=== PATIENT | female | born 1970 | race Caucasian/White ===

== ENCOUNTER 2020-01-19 11:37 | Outpatient (CLI) | payer MEDICAID ==
--- NOTE | 2020-01-19 14:31 | XRay Report ---
LEFT KNEE 3 VIEWS INDICATION / CLINICAL INFORMATION: M25.562 PAIN IN LEFT KNEE COMPARISON: None available. FINDINGS: BONES / JOINT(S): No acute fracture or subluxation. There is degenerative change involving all 3 comp artments most prominent in the lateral compartment. SOFT TISSUES: No significant abnormality. ADDITIONAL FINDINGS: None. Signer Name: Jesus Yousif MD Signed: 01/19/2020 2:26 PM Workstation Name: [id number]
--- NOTE | 2020-01-19 14:38 | XRay Report ---
RIGHT FOOT 3 VIEW(S) INDICATION / CLINICAL INFORMATION: M25.571 PAIN IN RIGHT ANKLE AND JOINTS OF RIGHT FOOT COMPARISON: None available. FINDINGS: BONES / JOINT(S): No acute fracture or subluxation. Plate and screw fixation is noted of the first th rough fourth TMT joints. The proximal aspect of the plate at the third TMT joint appears to be fractu red. Additionally the distal screw at the medial aspect of the second metatarsal is partially backed out. Screw fixation is noted prior trauma of the proximal fifth metatarsal and lateral cuneiform. SOFT TISSUES: Moderate soft tissue swelling is noted over the dorsum and medial aspects of the foot. ADDITIONAL FINDINGS: None. Signer Name: Marshal Aleman MD Signed: 01/19/2020 2:34 PM Workstation Name: [id number]
== END 2020-01-19 11:38 | disposition home or self-care (01) ==
LOC: XRAY 11:37
PROVIDERS: ATTEND Orthopaedic Surgery
DX: M17.12 Unilateral primary osteoarthritis, left knee (principal); M79.89 Other specified soft tissue disorders; M25.562 Pain in left knee; M25.571 Pain in right ankle and joints of right foot

== ENCOUNTER 2020-08-29 13:33 | Outpatient (CLI) | payer MEDICAID ==
[2020-08-29 14:03] LABS: Hematocrit 37.1 % (30.3-42.9); Hemoglobin 12.1 gm/dl (10.1-14.3); Mean Corpuscular HGB Conc 33 % (30-34); Mean Corpuscular Volume 94 fl (79-97); Platelet Count 199 K/mm3 (140-440); Red Blood Count 3.96 M/mm3 (3.65-5.03); Red Cell Distribution Width 16.2 % (13.2-15.2)
[2020-08-29 14:25] LABS: % Iron Saturation 16.61 %; Alanine Aminotransferase 36 units/L (7-56); Albumin 3.6 g/dL (3.9-5); BUN/Creatinine Ratio 21; Blood Urea Nitrogen 17 mg/dL (7-17); Calcium 8.9 mg/dL (8.4-10.2); HDL Cholesterol 70 mg/dL (40-59); Hemolysis Index 5; Iron 50 ug/dL (37-170); LDL Cholesterol,Direct 86 mg/dL (50-130); Total Iron Binding Capacity 301 mcg/dL (250-450)
[2020-08-29 14:44] LABS: Anisocytosis 1+; Ovalocytes Few; Platelet Estimate Consistent w Auto; Poikilocytosis 1+; Total Cells Counted 100
== END 2020-08-29 13:34 | disposition home or self-care (01) ==
LOC: LAB 13:33
PROVIDERS: ATTEND Surgery
DX: E66.01 Morbid (severe) obesity due to excess calories (principal); E11.9 Type 2 diabetes mellitus without complications; K30 Functional dyspepsia
CPT/HCPCS: 36415; 80053; 80061; 82306; 82607; 82728; 83036; 83550; 84425; 84443; 85007; 85025

== ENCOUNTER 2020-09-27 12:44 | Outpatient (CLI) | payer MEDICAID ==
--- NOTE | 2020-09-27 14:27 | XRay Report ---
BILATERAL FOOT 3 VIEW(S) INDICATION / CLINICAL INFORMATION: BILATERAL FOOT PAIN COMPARISON: Prior radiographs of the right foot 01/19/2020. FINDINGS: Right: BONES / JOINT(S): No acute fracture or subluxation. No significant arthritis. Accessory os peroneum SOFT TISSUES: No significant abnormality. Left: BONES / JOINT(S): No acute fracture or subluxation. Remote trauma noted throughout the midfoot and ba ses of the metatarsals with plate and screw fixation. Arthrodesis screws noted of the fifth TMT and c uboid. Previously noted fracture in the plate at the third TMT is similar. SOFT TISSUES: No significant abnormality. ADDITIONAL FINDINGS: None. Signer Name: Marshal Aleman MD Signed: 09/27/2020 2:22 PM Workstation Name: [id number]
== END 2020-09-27 12:45 | disposition home or self-care (01) ==
LOC: XRAY 12:44
PROVIDERS: ATTEND Orthopaedic Surgery
DX: S99.822A Other specified injuries of left foot, initial encounter (principal); I10 Essential (primary) hypertension

== ENCOUNTER 2020-11-10 06:55 | Day surgery (SDC) | payer MEDICAID ==
[~2020-11-10 06:55] MED LIST: MIDAZOLAM 2 MG/2 ML INJ IV NR; NEOMY 40 MG/POLYMYXIN B 200,000 UNITS/ML (GU) AMPULE IR ONE; SCOPOLAMINE TRANSDERMAL PATCH 72 HR TD NR; SODIUM CHLORIDE 0.9% 1000 ML 1,000 ML IV SCH; SODIUM CHLORIDE 0.9% IRR 1,500 ML BOTTLE IR ONE; ceFAZolin/Water 2 GM/20 ML 2 GM/20 ML SYRINGE IV NR
[2020-11-10] MEDS ORDERED: NEOMY 40 MG/POLYMYXIN B 200,000 UNITS/ML (GU) AMPULE IR ONE ×2 (07:08→08:48)
[2020-11-10] MEDS ORDERED: HYDROmorphone 1 MG/1 ML INJ ONE (07:25)
[2020-11-10] MEDS ORDERED: ONDANSETRON 4 MG/2 ML INJ ONE ×2 (07:25→10:34)
[2020-11-10] MEDS ORDERED: dexAMETHasone 20 MG/5 ML VIAL ONE ×2 (07:25→10:33)
[2020-11-10] MEDS ORDERED: fentaNYL 100 MCG/2 ML INJ ONE (07:25)
[2020-11-10] MEDS ORDERED: propofoL 200 MG/20 ML VIAL IV ONE ×4 (07:26→11:14)
[2020-11-10] MEDS ORDERED: ePHEDrine SULFATE 50 MG/1 ML INJ ONE ×2 (07:26→08:36)
[2020-11-10] MEDS ORDERED: HYDROcodone/ACETAMINOPHEN 5-325 MG TAB PO PRN (07:36)
[2020-11-10] MEDS ORDERED: ONDANSETRON 4 MG/2 ML INJ IV PRN (07:36)
--- NOTE | 2020-11-10 07:36 | Anesthesia Consultation ---
Anesthesia Consult and Med Hx Date of service: 11/10/20 - Airway Anesthetic Teeth Evaluation: Good ROM Head & Neck: Adequate Mental/Hyoid Distance: Adequate Mallampati Class: Class II Intubation Access Assessment: Probably Good (previous easy intubation w/ MAC 3) - Pre-Operative Health Status ASA Pre-Surgery Classification: ASA3 Proposed Anesthetic Plan: General - Pulmonary Hx Smoking: Yes (previous 1/2PPD; quit 1yr ago) Hx Respiratory Symptoms: No Hx Sleep Apnea: No ([place] PRE SCREEN HIGH RISK) - Cardiovascular System Hx Hypertension: No Hx Heart Attack/AMI: No Hx Percutaneous Transluminal Coronary Angioplasty (PTCA): No Hx Cardia Arrhythmia: No - Central Nervous System CVA: No Hx Back Pain: Yes Hx Psychiatric Problems: Yes (PTSD/anxiety) - Gastrointestinal Hx Gastroesophageal Reflux Disease: Yes (controlled) - Endocrine Hx Renal Disease: No Hx Cirrhosis: Yes (autoimmune cirrhosis; 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
--- NOTE | 2020-11-10 07:36 | Anesthesia Day of Surgery ---
Anesthesia Day of Surgery - Day of Surgery Patient Examined: Yes Patient H&P Reviewed: Yes Patient is NPO: Yes
[2020-11-10] MEDS ORDERED: oxyCODONE 5 MG TAB PO PRN (07:47)
[2020-11-10] MEDS ORDERED: SODIUM CHLORIDE 0.9% IRR 1,500 ML BOTTLE IR ONE (08:48)
--- NOTE | 2020-11-10 10:05 | Procedure Note ---
Date of procedure: 11/10/20 Pre-op diagnosis: Hardware irritation right foot Post-op diagnosis: same Procedure: Removal of hardware right forefoot Procedure Patient was brought to the OR and placed on the OR table in the supine position following induction intubation by anesthesia the patient's right lower extremity was prepped and draped in the usual sterile manner. A timeout procedure was done to identify the patient and the correct operative site. The leg was exsanguinated followed by inflation of the pneumatic tourniquet to 300 mmHg. Using C arm fluoroscopy and previous incision was made over the hardware site with #15 blade scalpel was used to incise the areas over the hardware beginning with the first tarsometatarsal joint the screws were retrieved followed by removal of the plate next the second and third tarsometatarsal plate and screws were removed again using C arm visualization this was done subsequently for the 4-5 TMT joint the remaining plate extracted without complications. Next the Surjit screw which was transfixing the cuboid was also removed next the wounds were copiously irrigated and were repaired in a standard routine fashion postop dressings were applied as well as a well-padded short leg splint Anesthesia: GETA Surgeon: USAMA GRAVES (Dae Johnson. 1st assit) Estimated blood loss: minimal Pathology: list (plate and screws) Specimen disposition: to lab Condition: stable Disposition: PACU
[2020-11-10] MEDS ORDERED: MIDAZOLAM 2 MG/2 ML INJ ONE (10:25)
[2020-11-10] MEDS ORDERED: KETAMINE/STERILE WATER 50 MG/ML SYRINGE ONE (10:25)
[2020-11-10] MEDS ORDERED: KETOROLAC 30 MG/1 ML INJ ONE (10:34)
[2020-11-10] MEDS ORDERED: GLYCOPYRROLATE 0.4 MG/2 ML INJ ONE (10:34)
[2020-11-10] MEDS: HYDROmorphone 1 MG/1 ML INJ IV PRN ×4 (10:53→11:25)
[2020-11-10] MEDS ORDERED: MIDAZOLAM 2 MG/2 ML INJ IV SCH (11:00)
[2020-11-10] MEDS ORDERED: BUPIVACAINE/PF (0.25%) 2.5 MG/ML 30 ML VIAL INFILTRATI ONE (11:09)
[2020-11-10 12:31] VITALS: BP 109/52
--- NOTE | 2020-11-10 13:48 | Post Anesthesia Evaluation ---
- Post Anesthesia Evaluation Patient Participated: Yes Airway Patent: Yes Stable Respiratory Function: Yes Nausea/Vomiting: No Temp > 96.8F: Yes Pain Manageable: Yes Adequeate Hydration: Yes Anesthesia Complications: No Block Receding Appropriately: Not Applicable (popliteal block placed in PACU w/ good result. Precautions discussed.)
--- NOTE | 2020-11-10 16:22 | XRay Report ---
RIGHT FOOT 2 VIEWS 0844 INDICATION: Intraoperative COMPARISON: 09/27/2020 Fluoroscopy time: 0.7 minutes FINDINGS: 2 views show initially the plates and screws in the midfoot seen on prior study and subsequ ent view shows all have been removed with satisfactory bony positioning noted in that view. Signer Name: Brock Wright MD Signed: 11/10/2020 4:18 PM Workstation Name: [id number]
== END 2020-11-10 13:10 | disposition home or self-care (01) ==
LOC: OR 06:55
PROVIDERS: ATTEND Orthopaedic Surgery
DX: M21.6X1 Other acquired deformities of right foot (principal); T84.84XA Pain due to internal orthopedic prosthetic devices, implants and grafts, initial encounter; T84.098A Other mechanical complication of other internal joint prosthesis, initial encounter; F32.9 Major depressive disorder, single episode, unspecified; K21.9 Gastro-esophageal reflux disease without esophagitis; G62.9 Polyneuropathy, unspecified; E66.9 Obesity, unspecified; M79.7 Fibromyalgia; F17.210 Nicotine dependence, cigarettes, uncomplicated; M19.90 Unspecified osteoarthritis, unspecified site; D64.9 Anemia, unspecified; G47.30 Sleep apnea, unspecified; F41.9 Anxiety disorder, unspecified; Z88.8 Allergy status to other drugs, medicaments and biological substances; Z68.35 Body mass index [BMI] 35.0-35.9, adult; Z79.899 Other long term (current) drug therapy; Z86.711 Personal history of pulmonary embolism; Z90.49 Acquired absence of other specified parts of digestive tract; Z90.710 Acquired absence of both cervix and uterus; Z87.442 Personal history of urinary calculi; Z87.440 Personal history of urinary (tract) infections; Z96.652 Presence of left artificial knee joint; Z98.890 Other specified postprocedural states; Y83.8 Other surgical procedures as the cause of abnormal reaction of the patient, or of later complication, without mention of misadventure at the time of the procedure; Y92.89 Other specified places as the place of occurrence of the external cause
CPT/HCPCS: 20680; 73620; 88300; J0690; J1100; J1170; J1885; J2250; J2405; J2704; J3010; J3490; J7030; 88302

== ENCOUNTER 2021-02-02 15:25 | Outpatient (CLI) | payer MEDICAID ==
--- NOTE | 2021-02-02 16:17 | XRay Report ---
Right foot 3 views INDICATION: Foot and ankle pain COMPARISON: 01/19/2020 FINDINGS: Diffuse soft tissue swelling along the dorsal aspect of the foot. Degenerative change throu ghout the middle and lateral cuneiforms. Irregularity in the base of the fifth metacarpal from prior surgery.. Advanced degenerative change and base of the great toe. There may be some erosive changes w ithin the Lisfranc joint and base of the great toe. IMPRESSION: Advanced degenerative change throughout the tarsometatarsal joint. There is some erosive changes at the base of the great toe. Diffuse soft tissue swelling is seen throughout the foot. Hardw are has been removed since prior examination in 2019 Signer Name: Moody Trejo MD Signed: 02/02/2021 4:10 PM Workstation Name: [email or web address]
== END 2021-02-02 15:26 | disposition home or self-care (01) ==
LOC: XRAY 15:25
PROVIDERS: ATTEND Orthopaedic Surgery
DX: M19.071 Primary osteoarthritis, right ankle and foot (principal); M79.89 Other specified soft tissue disorders